=== PATIENT | male | born 1985 | race Caucasian/White ===

== ENCOUNTER 2018-01-08 09:59 | Emergency (ER) | payer BC ==
--- NOTE | 2018-01-08 10:18 | UC ---
Complaint Male HPI - HPI Summary HPI Summary: 32 y/o male presents to the urgent care c/o sore throat and left testicular pain since yesterday. Pt reports he woke up yesterday w/ sore throat. Then he went to work and while he was doing some heavy lifting and climbing he developed left testicular pain. At the end of the day pain worsen and he felt nauseous. This morning sore throat is worse 8/10 w/ swallowing and testicular pain is gone. He only has mild lower back pain. Pt denies fever, flank pain, Hx of STD's, penile discharge, hernias, SOB, chest pain, URI, abdominal pain, N/V/ D. - History of Current Complaint Chief Complaint: UCGU Stated Complaint: SORE THROAT NAUSEA Time Seen by Provider: 01/08/18 10:14 Hx Obtained From: Patient Onset/Duration: Gradual Onset, Lasting Days - 1 day, Resolved, Worse Since - yesterday Timing: Intermittent, Lasting Hours - 10 hrs Severity Initially: Mild Severity Currently: Moderate Pain Intensity: 6 - testicular pain Pain Scale Used: 0-10 Numeric Location: Testicle - left Character: Sharp Aggravating Factor(s): Other - lifting and climbing Alleviating Factor(s): Other - resolved today Associated Signs And Symptoms: Positive: Back Pain - lower linda pain, Nausea. Negative: Fever, Hematuria, Dysuria, Constipation, Rectal Pain, Penile Swelling , Penile Discharge - Risk Factors Testicular Torsion: Negative - Allergies/Home Medications Allergies/Adverse Reactions: Allergies Allergy/AdvReac Type Severity Reaction Status Date / Time No Known Allergies Allergy Verified 01/08/18 10:13 Home Medications: Home Medications Sertraline* [Zoloft*] 150 mg PO DAILY 01/08/18 [History Confirmed 01/08/18] PMH/Surg Hx/FS Hx/Imm Hx Previously Healthy: Yes - Pt denies PMHX - Surgical History Surgical History: Yes Surgery Procedure, Year, and Place: PELVIS/HIP reconstruction 2011 - Family History Known Family History: Positive: Cardiac Disease - Social History Occupation: Employed Full-time Lives: With Family Alcohol Use: Occasionally Substance Use Type: None Smoking Status (MU): Former Smoker Type: Cigarettes Amount Used/How Often: 1 PPD Review of Systems Constitutional: Negative Skin: Negative Eyes: Negative ENT: Sore Throat - moderate since yesterday Respiratory: Cough - dry cough Cardiovascular: Negative Gastrointestinal: Negative Genitourinary: Other - left testicular pain Motor: Negative Neurovascular: Negative Musculoskeletal: Negative Neurological: Negative Psychological: Negative Is Patient Immunocompromised?: No All Other Systems Reviewed And Are Negative: Yes Physical Exam - Summary Physical Exam Summary: VITAL SIGNS: Reviewed. GENERAL: Patient is a well developed and nourished male who is sitting comfortable in the examining table. Patient is not in any acute respiratory distress. HEAD AND FACE: No signs of trauma. No ecchymosis, hematomas or skull depressions. No sinus tenderness. EYES: PERRLA, EOMI x 2, No injected conjunctiva, clear watery eyes, no nystagmus. No photophobia. EARS: Hearing grossly intact. Ear canals and tympanic membranes are within normal limits. MOUTH: pharynx with no erythema, no exudates,no palatal petechiae. no B/L tonsillar enlargement Uvula in midline. NECK: Supple, trachea is midline, no lymphadenopathy, no JVD, no carotid bruit, no c-spine tenderness, neck with full ROM. CHEST: Symmetric, no tenderness at palpation LUNGS: Clear to auscultation bilaterally. No wheezing or crackles. CVS: Regular rate and rhythm, S1 and S2 present, no murmurs or gallops appreciated. ABDOMEN: Soft, non-tender. No signs of distention. No rebound no guarding, and no masses palpated. Bowel sounds are normal. Male: I was assisted by nurse Annette. Normal external genitalia circumcised male; no lesions or rashes. femoral pulses wnl, no lymphadenopathy, no hernia or masses palpated in the inguinal canal or testicles, no tenderness on palpation elicited, Urinary meatus clear, no penile discharge. BACK:no scoliosis or lesions, non tender to palpation, No B/L CVA tenderness EXTREMITIES: FROM in all major joints, no edema, no cyanosis or clubbing. NEURO: Alert and oriented x 3. No acute neurological deficits. Speech is normal and follows commands. SKIN: Dry and warm Triage Information Reviewed: Yes Vital Signs: Initial Vital Signs Temp 98 F 01/08/18 10:03 Pulse 71 01/08/18 10:03 Resp 16 01/08/18 10:03 BP 126/63 01/08/18 10:03 Pulse Ox 98 01/08/18 10:03 Complaint Male Course/Dx - Course Course Of Treatment: 32 y/o male presents to the urgent care c/o sore throat and left testicular pain since yesterday. Pt reports he woke up yesterday w/ sore throat. Then he went to work and while he was doing some heavy lifting and climbing he developed left testicular pain. At the end of the day pain worsen and he felt nauseous. This morning sore throat is worse 8/10 w/ swallowing and testicular pain is gone. He only has mild lower back pain. Pt denies fever, flank pain, Hx of STD's, penile discharge, hernias, SOB, chest pain, URI, abdominal pain, N/V/D. Hx obtained. Pt w/ pharyngitis and exam WNL. Rapid strep ordered: negative. UA:negative. Left testicular US ordered to r/o any abnormality. Impression: small B/L hydroceles obserced as per radiologist. Results explained to Pt and since we cnat r/o any partial or intermittent torsion at this time w/ US, P strongly advised to go immediately to the ER if testicular pain returns. Otherwise to f/u w/ Urologist DR Mcneil for further managementon his Hydrocele. Pt Rx Ibuprofen PO to alleviate sore throat. D/c instructions explained. - Differential Dx/Diagnosis Differential Diagnosis/HQI/PQRI: Epididymitis, Phimosis, Priaprism, Prostatitis , Pyelonephritis, Testicular Torsion, Ureteral Calculi, Urinary Tract Infection Provider Diagnoses: 1- Left testicular pain. 2- B/L hydroceles. 2- Viral Pharyngitis Discharge - Sign-Out/Discharge Documenting (check all that apply): Patient Departure All imaging exams completed and their final reports reviewed: Yes - Discharge Plan Condition: Stable Disposition: HOME Prescriptions: Ibuprofen TAB* [Motrin TAB* 800 MG] 800 mg PO Q6H PRN #30 tab PRN Reason: Sore Throat Patient Education Materials: Hydrocele (ED), Pharyngitis (ED), Testicle Pain ( ED) Forms: *Work Release Referrals: Faheem Valle NP [Primary Care Provider] - 3 Days Daniel Pires MD [Medical Doctor] - 3 Days Additional Instructions: 1-Please take ibuprofen PO q6-8hrs prn as instructed after meals to alleviate sore throat pain and swelling. Increase fluid intake, eat well, rest and avoid strenuous exercise 2- If testicular pain returns please go immediately to the ER for further evaluation and treatment. Otherwise f/u w/ Urologist DR Thakur for further management on your Hydrocele. 3-If symptoms pharyngitis do not improve or worsen please return to the urgent care or f/u with your PCP in 3 days for further evaluation and treatment. - Billing Disposition and Condition Condition: STABLE Disposition: Home
--- NOTE | 2018-01-08 11:56 | RAD ---
HISTORY: left testicular pain COMPARISONS: None TECHNIQUE: Multiple transverse and longitudinal ultrasound images were obtained of the scrotum, using grayscale, color Doppler, and spectral Doppler imaging. FINDINGS: RIGHT: RIGHT TESTICLE: The right testicle measures 4.5 x 2.1 x 3.3 cm. The right testicle is homogeneous in echotexture, without testicular parenchymal mass. Normal arterial and venous waveforms are identified within the right testicle on spectral Doppler imaging. RIGHT EPIDIDYMIS: The right epididymis measures 1.4 cm at the head. RIGHT SCROTUM: There is a small hydrocele. There is no varicocele. LEFT: LEFT TESTICLE: The left testicle measures 4.9 x 2.2 x 3 cm. The left testicle is homogeneous in echotexture, without testicular parenchymal mass. Normal arterial and venous waveforms are identified within the left testicle on spectral Doppler imaging. LEFT EPIDIDYMIS: The left epididymis measures 1.3 cm at the head. LEFT SCROTUM: There is a small hydrocele. There is no varicocele. OTHER: None IMPRESSION: 1. NO TESTICULAR PARENCHYMAL MASS. 2. NO SONOGRAPHIC FEATURES OF TORSION. PLEASE NOTE THAT PARTIAL OR INTERMITTENT TORSION MAY BE SONOGRAPHICALLY NORMAL. 3. SMALL BILATERAL HYDROCELES.
[2018-01-08 12:23] VITALS: BP 122/80
== END 2018-01-08 12:23 | disposition home or self-care (01) ==
LOC: UCEAST 09:59
DX: N50.812 Left testicular pain (principal); N43.3 Hydrocele, unspecified; J02.8 Acute pharyngitis due to other specified organisms; Z87.891 Personal history of nicotine dependence
CPT/HCPCS: 76870; 81003; 87651; 99202; G0463

== ENCOUNTER 2019-03-24 17:17 | Emergency (ER) | payer BC ==
--- NOTE | 2019-03-24 17:33 | UC ---
Throat Pain/Nasal Efren HPI - HPI Summary HPI Summary: 33 yo male presents with sinus complaint. He tells me that for the last 3 weeks he has had intermittent sinus pain/pressure/congestion, post nasal drip, and sore throat. Intermittently productive cough. Over the last 5 days has had worsening symptoms. Has been taking sudafed and using an OTC nasal spray with no relief. Has felt feverish at times, but has not taken his temperature. Denies SOB, chest pain, abdominal pain, n/v - History of Current Complaint Stated Complaint: SORE THROAT/EARS/SINUS Time Seen by Provider: 03/24/19 17:33 Hx Obtained From: Patient Onset/Duration: Gradual Onset Severity: Moderate Pain Intensity: 4 Pain Scale Used: 0-10 Numeric - Allergies/Home Medications Allergies/Adverse Reactions: Allergies Allergy/AdvReac Type Severity Reaction Status Date / Time No Known Allergies Allergy Verified 03/24/19 17:36 PMH/Surg Hx/FS Hx/Imm Hx Psychological History: Anxiety, Depression - Surgical History Surgical History: Yes Surgery Procedure, Year, and Place: PELVIS/HIP reconstruction 2011 - Family History Known Family History: Positive: Cardiac Disease - Social History Occupation: Employed Full-time Lives: With Family Alcohol Use: Occasionally Substance Use Type: None Smoking Status (MU): Former Smoker Type: Cigarettes Amount Used/How Often: 1 PPD Review of Systems All Other Systems Reviewed And Are Negative: No Constitutional: Positive: Negative Skin: Positive: Negative Eyes: Positive: Negative ENT: Positive: Nasal Discharge, Sinus Congestion, Sinus Pain/Tenderness Respiratory: Positive: Cough Cardiovascular: Positive: Negative Gastrointestinal: Positive: Negative Neurological: Positive: Negative Psychological: Positive: Negative Physical Exam - Summary Physical Exam Summary: GENERAL: NAD. WDWN. No pain distress. SKIN: No rashes, sores, lesions, or open wounds. HEENT: Head: AT/NC Eyes: EOM intact. Conjunctiva clear without inflammation or discharge. Ears: Hearing grossly normal. TMs intact, no bulging, erythema, or edema. Nose: Nasal mucosa mildly swollen and erythematous with yellow/ clear discharge. TTP maxillary and frontal sinus. Positive post nasal drip Throat: Posterior oropharynx without exudates, erythema, or tonsillar enlargement. Uvula midline. NECK: Supple. Nontender. No lymphadenopathy. CHEST: CTAB. No r/r/w. No accessory muscle use. Breathing comfortably and in no distress. CV: RRR. Pulses intact. NEURO: Alert. PSYCH: Age appropriate behavior. Triage Information Reviewed: Yes Vital Signs: Vital Signs: Temp Pulse Resp BP Pulse Ox 98.2 F 60 15 116/79 98 03/24/19 17:32 03/24/19 17:32 03/24/19 17:32 03/24/19 17:32 03/24/19 17:32 Vital Signs Reviewed: Yes Throat Pain/Nasal Course/Dx - Course Course Of Treatment: Sinusitis - Differential Dx/Diagnosis Provider Diagnosis: Sinusitis Discharge ED - Sign-Out/Discharge Documenting (check all that apply): Patient Departure All imaging exams completed and their final reports reviewed: No Studies - Discharge Plan Condition: Stable Disposition: HOME Prescriptions: Amoxicillin PO (*) [Amoxicillin 875 MG (*)] 875 mg PO BID #14 tab guaiFENesin ER TAB [Mucinex*] 600 mg PO BID #14 tab.er Patient Education Materials: Sinusitis (ED) Referrals: Faheem Valle NP [Primary Care Provider] - Additional Instructions: If you develop a fever, shortness of breath, chest pain, new or worsening symptoms - please call your PCP or go to the ED immediately. - Billing Disposition and Condition Condition: STABLE Disposition: Home
[2019-03-24 17:36] VITALS: BP 116/79
== END 2019-03-24 17:47 | disposition home or self-care (01) ==
LOC: UCCORT 17:17
DX: J32.9 Chronic sinusitis, unspecified (principal); R05 Cough; Z87.891 Personal history of nicotine dependence
CPT/HCPCS: 99212; G0463